=== PATIENT | female | born 1980 | race American Indian/Alaskan Native ===

== ENCOUNTER 2020-05-18 18:22 | Emergency (ER) | payer SELFPAY ==
[2020-05-18] MEDS ORDERED: FAMOTIDINE 20 MG/2 ML INJ IV ONE (20:14)
[2020-05-18] MEDS ORDERED: SODIUM CHLORIDE 0.9% 1000 ML 1,000 ML IV ONE (20:14)
[2020-05-18] MEDS ORDERED: KETOROLAC 30 MG/1 ML INJ IV ONE (20:14)
[2020-05-18] MEDS ORDERED: METOCLOPRAMIDE 10 MG/2 ML INJ IV ONE (20:14)
[2020-05-18 20:21] LABS: Basophils % (Auto) 0.1 % (0.0-1.8); Eosinophils # (Auto) 0.6 K/mm3 (0.0-0.4); Eosinophils % (Auto) 5.6 % (0.0-4.3); Hematocrit 34.2 % (30.3-42.9); Hemoglobin 11.1 gm/dl (10.1-14.3); Lymphocytes # (Auto) 1.2 K/mm3 (1.2-5.4); Lymphocytes % (Auto) 10.8 % (13.4-35.0); Mean Corpuscular HGB Conc 33 % (30-34); Mean Corpuscular Volume 81 fl (79-97); Monocytes # (Auto) 1.3 K/mm3 (0.0-0.8); Platelet Count 417 K/mm3 (140-440); Red Blood Count 4.25 M/mm3 (3.65-5.03); Red Cell Distribution Width 16.7 % (13.2-15.2)
[2020-05-18 20:46] LABS: Alanine Aminotransferase 6 units/L (7-56); Albumin 3.3 g/dL (3.9-5); Blood Urea Nitrogen 7 mg/dL (7-17); Calcium 8.3 mg/dL (8.4-10.2); Hemolysis Index 24
[2020-05-18 20:50] LABS: Bacteria,Urine 2+ /HPF (Negative); Bilirubin,Urine NEG (Negative); Blood,Urine NEG (Negative); Color,Urine Yellow (Yellow); Protein,Urine <15 mg/dL mg/dL (Negative)
[2020-05-18 20:52] LABS: HCG Qualitative,Urine Negative (Negative)
[2020-05-18 21:00] LABS: BUN/Creatinine Ratio 12
--- NOTE | 2020-05-18 21:33 | Cat Scan Report ---
CT ABDOMEN AND PELVIS WITHOUT CONTRAST INDICATION / CLINICAL INFORMATION: Patient complains of flank pain. TECHNIQUE: Axial CT images were obtained through the abdomen and pelvis without IV contrast. All CT scans at [facility] location are performed using CT dose reduction for ALARA by means of automated exposure control. COMPARISON: None available. FINDINGS: LOWER CHEST: No significant abnormality. HEPATOBILIARY: Enlarged liver measuring up to 20.4 cm. No focal lesion. No significant biliary abnorm ality. PANCREAS/SPLEEN/ADRENALS: No significant abnormality. GENITOURINARY: No nephrolithiasis or evidence of obstructive uropathy. Bladder demonstrates no signif icant abnormality. GASTROINTESTINAL/MESENTERY: Small hiatal hernia. No bowel obstruction or inflammation. No free air or significant free fluid. No evidence of acute appendicitis. RETROPERITONEUM: Multiple normal-sized and upper limits normal size retroperitoneal lymph nodes. REPRODUCTIVE ORGANS: No significant abnormality. VASCULAR: No significant abnormality. BODY WALL: No significant abnormality. SKELETAL SYSTEM: Mild osteitis pubis. No acute fracture or aggressive osseous lesion. IMPRESSION: 1. No acute abdominopelvic abnormality. 2. Hepatomegaly. 3. Small hiatal hernia. 4. Mild osteitis pubis. Signer Name: Kirill Martinez MD Signed: 05/18/2020 9:29 PM Workstation Name: [id number]
[2020-05-18] MEDS ORDERED: cefTRIAXone/NS 1 GM/50 ML 1 GM/50 ML BAG IV ONE (22:19)
--- NOTE | 2020-05-18 22:35 | Emergency Department Report ---
ED Abdominal Pain HPI - General Chief Complaint: Abdominal Pain Stated Complaint: KIDNEY INFECTION Time Seen by Provider: 05/18/20 20:16 Source: patient Mode of arrival: Ambulatory Limitations: No Limitations - History of Present Illness Initial Comments: This is a 39-year-old female who presents to the ED complaining of right-sided flank pain x2 to 3 days. Patient states that pain is localized to the right flank area. Patient states that pain is localized to the flank area. Patient states that pain started 2 days ago and has gotten worse since then. Patient denies any nausea vomiting or diarrhea. Patient denies chest pain, shortness of breath. She denies dysuria, vaginal bleeding MD Complaint: flank pain Migration to: no migration Severity: moderate Severity scale (0 -10): 6 - Related Data Previous Rx's Medication Instructions Recorded Last Taken Type Ciprofloxacin HCl [Ciprofloxacin 500 mg PO Q12HR #14 tab 05/18/20 Unknown Rx TAB] Ketorolac [Toradol] 10 mg PO Q6H PRN #20 tablet 05/18/20 Unknown Rx Allergies Allergy/AdvReac Type Severity Reaction Status Date / Time No Known Allergies Allergy Unverified 05/18/20 19:22 ED Review of Systems ROS: Stated complaint: KIDNEY INFECTION Other details as noted in HPI Comment: All other systems reviewed and negative ED Past Medical Hx - Past Medical History Previous Medical History?: Yes Additional medical history: Genital Herpes - Surgical History Past Surgical History?: Yes Additional Surgical History: - Social History Smoking Status: Never Smoker Substance Use Type: None - Medications Home Medications: Home Medications Medication Instructions Recorded Confirmed Last Taken Type Ciprofloxacin HCl [Ciprofloxacin 500 mg PO Q12HR #14 tab 05/18/20 Unknown Rx TAB] Ketorolac [Toradol] 10 mg PO Q6H PRN #20 tablet 05/18/20 Unknown Rx ED Physical Exam - General Limitations: No Limitations General appearance: alert, in no apparent distress - Head Head exam: Present: atraumatic, normocephalic - Eye Eye exam: Present: normal appearance - ENT ENT exam: Present: mucous membranes moist - Neck Neck exam: Present: normal inspection - Respiratory Respiratory exam: Present: normal lung sounds bilaterally. Absent: respiratory distress - Cardiovascular Cardiovascular Exam: Present: regular rate, normal rhythm. Absent: systolic murmur, diastolic murmur, rubs, gallop - GI/Abdominal GI/Abdominal exam: Present: soft, normal bowel sounds. Absent: distended, tenderness, guarding - Extremities Exam Extremities exam: Present: normal inspection. Absent: full ROM - Back Exam Back exam: Present: normal inspection, full ROM, tenderness, CVA tenderness (R). Absent: CVA tenderness (L) - Neurological Exam Neurological exam: Present: alert, oriented X3, normal gait - Psychiatric Psychiatric exam: Present: normal affect, normal mood - Skin Skin exam: Present: warm, dry, intact, normal color. Absent: rash ED Course Vital Signs 05/18/20 05/18/20 05/18/20 19:13 21:12 23:35 Temperature 100.1 F H 98.2 F Pulse Rate 95 H 78 Respiratory 16 16 16 Rate Blood Pressure 105/69 Blood Pressure 135/84 [Left] O2 Sat by Pulse 100 99 Oximetry ED Medical Decision Making - Lab Data Result diagrams: 05/18/20 20:06 05/18/20 20:06 Laboratory Last Values WBC 11.5 K/mm3 (4.5-11.0) H 05/18/20 20:06 RBC 4.25 M/mm3 (3.65-5.03) 05/18/20 20:06 Hgb 11.1 gm/dl (10.1-14.3) 05/18/20 20:06 Hct 34.2 % (30.3-42.9) 05/18/20 20:06 MCV 81 fl (79-97) 05/18/20 20:06 MCH 26 pg (28-32) L 05/18/20 20:06 MCHC 33 % (30-34) 05/18/20 20:06 RDW 16.7 % (13.2-15.2) H 05/18/20 20:06 Plt Count 417 K/mm3 (140-440) 05/18/20 20:06 Lymph % (Auto) 10.8 % (13.4-35.0) L 05/18/20 20:06 [place] % (Auto) 11.0 % (0.0-7.3) H 05/18/20 20:06 Eos % (Auto) 5.6 % (0.0-4.3) H 05/18/20 20:06 Baso % (Auto) 0.1 % (0.0-1.8) 05/18/20 20:06 Lymph # (Auto) 1.2 K/mm3 (1.2-5.4) 05/18/20 20:06 [place] # (Auto) 1.3 K/mm3 (0.0-0.8) H 05/18/20 20:06 Eos # (Auto) 0.6 K/mm3 (0.0-0.4) H 05/18/20 20:06 Baso # (Auto) 0.0 K/mm3 (0.0-0.1) 05/18/20 20:06 Seg Neutrophils % 72.5 % (40.0-70.0) H 05/18/20 20:06 Seg Neutrophils # 8.3 K/mm3 (1.8-7.7) H 05/18/20 20:06 Sodium 134 mmol/L (137-145) L 05/18/20 20:06 Potassium 4.2 mmol/L (3.6-5.0) 05/18/20 20:06 Chloride 99.3 mmol/L (98-107) 05/18/20 20:06 Carbon Dioxide 25 mmol/L (22-30) 05/18/20 20:06 Anion Gap 14 mmol/L 05/18/20 20:06 BUN 7 mg/dL (7-17) 05/18/20 20:06 Creatinine 0.6 mg/dL (0.6-1.2) 05/18/20 20:06 Estimated GFR > 60 ml/min 05/18/20 20:06 BUN/Creatinine Ratio 12 % 05/18/20 20:06 Glucose 108 mg/dL (65-100) H 05/18/20 20:06 Calcium 8.3 mg/dL (8.4-10.2) L 05/18/20 20:06 Total Bilirubin 0.20 mg/dL (0.1-1.2) 05/18/20 20:06 AST 10 units/L (5-40) 05/18/20 20:06 ALT 6 units/L (7-56) L 05/18/20 20:06 Alkaline Phosphatase 52 units/L (35-129) 05/18/20 20:06 Total Protein 6.2 g/dL (6.3-8.2) L 05/18/20 20:06 Albumin 3.3 g/dL (3.9-5) L 05/18/20 20:06 Albumin/Globulin Ratio 1.1 % 05/18/20 20:06 Lipase 17 units/L (13-60) 05/18/20 20:06 Urine Color Yellow (Yellow) 05/18/20 Unknown Urine Turbidity Clear (Clear) 05/18/20 Unknown Urine pH 5.0 (5.0-7.0) 05/18/20 Unknown Ur Specific [place] 1.016 (1.003-1.030) 05/18/20 Unknown Urine Protein <15 mg/dl mg/dL (Negative) 05/18/20 Unknown Urine Glucose (UA) Neg mg/dL (Negative) 05/18/20 Unknown Urine Ketones Neg mg/dL (Negative) 05/18/20 Unknown Urine Blood Neg (Negative) 05/18/20 Unknown Urine Nitrite Neg (Negative) 05/18/20 Unknown Urine Bilirubin Neg (Negative) 05/18/20 Unknown Urine Urobilinogen 2.0 mg/dL (<2.0) 05/18/20 Unknown Ur Leukocyte Esterase Mod (Negative) 05/18/20 Unknown Urine WBC (Auto) 30.0 /HPF (0.0-6.0) H 05/18/20 Unknown Urine RBC (Auto) 4.0 /HPF (0.0-6.0) 05/18/20 Unknown U Epithel Cells (Auto) < 1.0 /HPF (0-13.0) 05/18/20 Unknown Urine Bacteria (Auto) 2+ /HPF (Negative) 05/18/20 Unknown Urine HCG, Qual Negative (Negative) 05/18/20 Unknown - Radiology Data Radiology results: report reviewed, image reviewed CT ABDOMEN AND PELVIS WITHOUT CONTRAST INDICATION / CLINICAL INFORMATION: Patient complains of flank pain. TECHNIQUE: Axial CT images were obtained through the abdomen and pelvis without IV contrast. All CT scans at this location are performed using CT dose reduction for ALARA by means of automated exposure control. COMPARISON: None available. FINDINGS: LOWER CHEST: No significant abnormality. HEPATOBILIARY: Enlarged liver measuring up to 20.4 cm. No focal lesion. No significant biliary abnormality. PANCREAS/SPLEEN/ADRENALS: No significant abnormality. GENITOURINARY: No nephrolithiasis or evidence of obstructive uropathy. Bladder demonstrates no significant abnormality. GASTROINTESTINAL/MESENTERY: Small hiatal hernia. No bowel obstruction or inflammation. No free air or significant free fluid. No evidence of acute appendicitis. RETROPERITONEUM: Multiple normal-sized and upper limits normal size retroperitoneal lymph nodes. REPRODUCTIVE ORGANS: No significant abnormality. VASCULAR: No significant abnormality. BODY WALL: No significant abnormality. SKELETAL SYSTEM: Mild osteitis pubis. No acute fracture or aggressive osseous lesion. IMPRESSION: 1. No acute abdominopelvic abnormality. 2. Hepatomegaly. 3. Small hiatal hernia. 4. Mild osteitis pubis. Signer Name: Kirill Martinez MD Signed: 05/18/2020 9:29 PM Workstation Name: [id number] Transcribed By: Dictated By: KIRILL MARTINEZ III Electronically Authenticated By: KIRILL MARTINEZ III Signed Date/Time: 05/18/202128 - Medical Decision Making This 39-year-old female who presented with acute pyelonephritis Patient received 1 L of fluids, pain meds and 1 g Rocephin in the ED. Patient reports feeling much better after administration. Vital signs normalized. Discussed with patient to follow-up with primary care physician within a week. patient was in no acute distress. Patient understands instructions as given. Discussed with patient if she has any worsening symptoms she may return to the ED. Critical care attestation.: If time is entered above; I have spent that time in minutes in the direct care of this critically ill patient, excluding procedure time. ED Disposition Clinical Impression: Flank pain, UTI (urinary tract infection), Acute pyelonephritis Disposition: DC-01 TO HOME OR SELFCARE Is pt being admited?: No Does the pt Need Aspirin: No Condition: Stable Instructions: Pyelonephritis, Adult, [id number], Urinary Tract Infection, Adult, [id number], Flank Pain, Adult, [id number], Abdominal Pain (ED) Additional Instructions: Make sure to follow up with the primary care physician as discussed. Take all your medications as you've been prescribed. If you have any worsening symptoms or develop new symptoms please return to ED immediately. Prescriptions: Ciprofloxacin HCl [Ciprofloxacin TAB] 500 mg PO Q12HR #14 tab Ketorolac [Toradol] 10 mg PO Q6H PRN #20 tablet PRN Reason: Pain Referrals: [facility] [Outside] - 3-5 Days [facility] [Outside] - 3-5 Days [facility] [Provider Group] - 3-5 Days Forms: Work/School Release Form(ED) Time of Disposition: 22:45
[2020-05-18 23:35] VITALS: BP 135/84
== END 2020-05-18 23:35 | disposition home or self-care (01) ==
LOC: ED 18:22
DX: N39.0 Urinary tract infection, site not specified (principal); N10 Acute pyelonephritis; Z79.899 Other long term (current) drug therapy
CPT/HCPCS: 36415; 74176; 80053; 81001; 81025; 83690; 85025; 87086; 96361; 96365; 96375; 99284; J0696; J1885; J2765; J7030